=== PATIENT | male | born 1955 | race Caucasian/White ===

== ENCOUNTER 2017-02-17 13:00 | Inpatient (IN) | payer MEDICAID ==
[~2017-02-17] VITALS: Ht 182.9 cm; Wt 77.4 kg
[~2017-02-17 13:00] MED LIST: AMLO5TAB2 PO; APIX5TAB PO; ATOR20TA9 PO; CEFD300C37 PO; LEVE500T53 PO
[2017-02-17] MEDS ORDERED: NITROGLYCERIN 5 MG/ML, 10ML ONE (13:14)
[2017-02-17] MEDS ORDERED: VERAPAMIL 2.5 MG/ML, 2ML ONE (13:14)
[2017-02-17] MEDS ORDERED: TICAGRELOR 90 MG TABLET ONE (13:14)
[2017-02-17] MEDS ORDERED: FENTANYL PF 100 MCG/2ML ONE (13:14)
[2017-02-17] MEDS ORDERED: MIDAZOLAM 1 MG/ML, 5ML ONE (13:14)
[2017-02-17] MEDS ORDERED: HEPARIN 1,000 UNITS/ML, 10ML ONE (13:15)
[2017-02-17] MEDS ORDERED: BIVALIRUDIN 250 MG ONE (13:15)
[2017-02-17] MEDS ORDERED: LIDOCAINE 2%, 20ML ONE (13:15)
[2017-02-17] MEDS ORDERED: SODIUM CHLORIDE 0.9% 1,000ML IVBOLUS ONE (13:30)
[2017-02-17] MEDS ORDERED: NITROGLYCERIN SINGLE TAB 0.4 MG SL PRN (13:30)
[2017-02-17] MEDS ORDERED: NITROGLYCERIN SINGLE TAB 0.4 MG SL ONE ×2 (13:37)
[2017-02-17 13:55] LABS: ASPARTATE AMINO TRANSFERASE 44 U/L (15-37); BLOOD UREA NITROGEN 17 mg/dL (7-18)
[2017-02-17] MEDS ORDERED: LORazepam 2 MG/ML, 1ML IVPush ONE (15:00)
[2017-02-17] MEDS ORDERED: LORazepam 2 MG/ML, 1ML ONE (15:36)
[2017-02-17] MEDS ORDERED: OMNIPAQUE 350 MG/ML, 100ML BOTTLE ONE (16:17)
[2017-02-17] MEDS: SODIUM CHLORIDE 0.9% 1,000 ML IV SCH (16:53)
[2017-02-17] MEDS: D5%-0.45% NACL 1,000 ML IV SCH ×2 (17:00→22:00)
[2017-02-17] MEDS ORDERED: POLYETHYLENE GLYCOL 17 GM PACKET PO PRN (17:00)
[2017-02-17] MEDS ORDERED: LABETALOL 5MG/ML, 20ML IVPush PRN (17:00)
[2017-02-17] MEDS ORDERED: LORazepam 2 MG/ML, 1ML IVPush PRN (17:00)
[2017-02-17] MEDS ORDERED: THIAMINE 100 MG in SODIUM CHLORIDE 0.9% 50 ML IV ONE (17:00)
[2017-02-17] MEDS ORDERED: BISACODYL 10 MG SUPP PR PRN (17:00)
[2017-02-17] MEDS ORDERED: MORPHINE SULFATE 4 MG/ML, 1ML IVPush PRN (17:00)
[2017-02-17] MEDS ORDERED: ONDANSETRON ODT 4 MG PO PRN (17:00)
[2017-02-17] MEDS ORDERED: NITROGLYCERIN 0.4 MG/SPRAY SL PRN (17:00)
[2017-02-17] MEDS ORDERED: ONDANSETRON 2MG/ML, 2ML IVPush PRN (17:00)
[2017-02-17] MEDS ORDERED: DOCUSATE 100 MG CAPSULE PO PRN (17:00)
[2017-02-17] MEDS ORDERED: NICOTINE 21 MG/24 HR PATCH.TD24 ONE (17:46)
[2017-02-17] MEDS: NICOTINE 21 MG/24 HR PATCH.TD24 TD SCH (17:57)
[2017-02-17] MEDS ORDERED: THIAMINE 100 MG, MVI ADULT 10 ML, FOLIC ACID 1 MG in D5%-0.9% NACL 1,000 ML IV SCH (20:00)
[2017-02-17 20:22] LABS: IS PT STATUS REG ER OR PRE ER? NO
[2017-02-17] MEDS ORDERED: APIXABAN 5 MG TABLET PO SCH (21:00)
[2017-02-17] MEDS: FLUTICASONE/VILANTEROL 100-25MCG/INH INH SCH (21:44)
[2017-02-17] MEDS: APIXABAN 2.5 MG TABLET PO SCH (21:44)
[2017-02-17] MEDS: AMLODIPINE 5 MG TABLET PO SCH (21:44)
[2017-02-17] MEDS: ATORVASTATIN 20 MG TABLET PO SCH (21:45)
[2017-02-17] MEDS: LEVETIRACETAM 500 MG TABLET PO SCH (21:45)
[2017-02-17 21:48] VITALS: BP 124/81
[2017-02-18 02:15] LABS: DAU SCREEN DISCLAIMER
[2017-02-18 02:40] VITALS: BP 143/97
[2017-02-18 03:00] LABS: BLOOD UREA NITROGEN 17 mg/dL (7-18)
[2017-02-18 03:03] LABS: ASPARTATE AMINO TRANSFERASE 33 U/L (15-37)
[2017-02-18 03:10] LABS: IS PT STATUS REG ER OR PRE ER? NO
[2017-02-18] MEDS: SODIUM CHLORIDE 0.9% 1,000 ML IV SCH ×2 (07:00→20:20)
[2017-02-18] MEDS: D5%-0.45% NACL 1,000 ML IV SCH ×2 (07:30→12:30)
[2017-02-18 08:29] VITALS: BP 132/91
[2017-02-18] MEDS ORDERED: MAGNESIUM SULFATE PMX 4GM/100M 100 ML IV ONE (08:30)
[2017-02-18] MEDS: FLUTICASONE/VILANTEROL 100-25MCG/INH INH SCH (09:05)
[2017-02-18] MEDS: LEVETIRACETAM 500 MG TABLET PO SCH ×2 (09:05→20:20)
[2017-02-18] MEDS: ACETAMINOPHEN 325 MG TABLET PO PRN ×2 (09:05→20:23)
[2017-02-18] MEDS: AMLODIPINE 5 MG TABLET PO SCH ×2 (09:05→20:21)
[2017-02-18] MEDS: APIXABAN 2.5 MG TABLET PO SCH ×2 (09:05→20:20)
[2017-02-18 15:01] VITALS: BP 142/97
[2017-02-18] MEDS: NICOTINE 21 MG/24 HR PATCH.TD24 TD SCH ×2 (17:00→20:20)
[2017-02-18 19:00] VITALS: BP 131/97
[2017-02-18] MEDS: ATORVASTATIN 20 MG TABLET PO SCH (20:21)
[2017-02-19 01:23] VITALS: BP 134/94
[2017-02-19] MEDS: SODIUM CHLORIDE 0.9% 1,000 ML IV SCH ×3 (05:10→21:14)
[2017-02-19 05:55] LABS: BLOOD UREA NITROGEN 7 mg/dL (7-18)
[2017-02-19 08:22] VITALS: BP 141/102
[2017-02-19] MEDS ORDERED: LORazepam 1MG TABLET ONE (09:19)
[2017-02-19] MEDS: FLUTICASONE/VILANTEROL 100-25MCG/INH INH SCH (09:29)
[2017-02-19] MEDS: APIXABAN 2.5 MG TABLET PO SCH ×2 (09:29→21:14)
[2017-02-19] MEDS: ACETAMINOPHEN 325 MG TABLET PO PRN ×2 (09:29→21:14)
[2017-02-19] MEDS: LEVETIRACETAM 500 MG TABLET PO SCH ×2 (09:29→21:14)
[2017-02-19] MEDS: AMLODIPINE 5 MG TABLET PO SCH ×2 (09:30→21:14)
[2017-02-19] MEDS: FOLIC ACID 1 MG TABLET PO SCH (13:34)
[2017-02-19] MEDS: THIAMINE 100MG TABLET PO SCH (13:34)
[2017-02-19] MEDS: MULTIVITAMIN 1 TABLET PO SCH (13:34)
[2017-02-19 14:37] VITALS: BP 121/88
[2017-02-19] MEDS: NICOTINE 21 MG/24 HR PATCH.TD24 TD SCH (16:49)
[2017-02-19 18:51] VITALS: BP 128/92
[2017-02-19] MEDS: ATORVASTATIN 20 MG TABLET PO SCH (21:14)
[2017-02-20 00:14] VITALS: BP 134/85
[2017-02-20] MEDS: SODIUM CHLORIDE 0.9% 1,000 ML IV SCH (05:00)
[2017-02-20 08:45] VITALS: BP 135/102
[2017-02-20] MEDS: AMLODIPINE 5 MG TABLET PO SCH (09:08)
[2017-02-20] MEDS: APIXABAN 2.5 MG TABLET PO SCH (09:08)
[2017-02-20] MEDS: FLUTICASONE/VILANTEROL 100-25MCG/INH INH SCH (09:08)
[2017-02-20] MEDS: FOLIC ACID 1 MG TABLET PO SCH (09:08)
[2017-02-20] MEDS: LEVETIRACETAM 500 MG TABLET PO SCH (09:08)
[2017-02-20] MEDS: MULTIVITAMIN 1 TABLET PO SCH (09:08)
[2017-02-20] MEDS: THIAMINE 100MG TABLET PO SCH (09:08)
[2017-02-20] MEDS ORDERED: MULT1TAB60 PO (10:45)
[2017-02-20] MEDS ORDERED: ATOR20TA9 PO (10:45)
[2017-02-20] MEDS ORDERED: FLUT1AER INH (10:45)
[2017-02-20] MEDS ORDERED: APIX2.5T PO (10:45)
[2017-02-20] MEDS ORDERED: LEVE500T53 PO (10:45)
[2017-02-20] MEDS ORDERED: FOLI-17 PO (10:45)
[2017-02-20] MEDS ORDERED: THIA100T6 PO (10:45)
[2017-02-20] MEDS ORDERED: AMLO5TAB2 PO (10:46)
== END 2017-02-20 12:30 | disposition home or self-care (01) | DRG 896 ==
LOC: ED 15:07 → EDIP 16:54 → 4EST 18:17
PROVIDERS: ADMIT Internal Medicine; ATTEND Internal Medicine
DX: F10.229 Alcohol dependence with intoxication, unspecified (principal); G93.41 Metabolic encephalopathy; I50.32 Chronic diastolic (congestive) heart failure; F17.210 Nicotine dependence, cigarettes, uncomplicated; G40.909 Epilepsy, unspecified, not intractable, without status epilepticus; G89.29 Other chronic pain; I11.0 Hypertensive heart disease with heart failure; R29.6 Repeated falls; M79.1 Myalgia; E83.42 Hypomagnesemia; J44.9 Chronic obstructive pulmonary disease, unspecified; Y90.8 Blood alcohol level of 240 mg/100 ml or more; R94.31 Abnormal electrocardiogram [ECG] [EKG]; M19.90 Unspecified osteoarthritis, unspecified site; Z79.01 Long term (current) use of anticoagulants; Z80.8 Family history of malignant neoplasm of other organs or systems; Z82.3 Family history of stroke; Z86.711 Personal history of pulmonary embolism; Z86.73 Personal history of transient ischemic attack (TIA), and cerebral infarction without residual deficits; Z91.19 Patient's noncompliance with other medical treatment and regimen; Z79.899 Other long term (current) drug therapy
CPT/HCPCS: 36415; 70450; 71010; 71275; 80048; 80053; 80307; 82140; 83735; 83880; 84100; 84484; 85025; 85610; 93005; 96361; 96374; 96375; J0583; J1644; J2250; J3010; J3411; J3490; J7042; Q9967; J2060; J3475; J7030